=== PATIENT | male | born 1975 | race Caucasian/White ===

== ENCOUNTER 2018-06-27 12:13 | Emergency (ER) | payer OTHER, MEDICAID, SELFPAY ==
[2018-06-27 12:25] VITALS: BP 185/98; PULSE 92; RESP 15; TEMP 36.8; O2SAT 95; BMI 51.7
--- NOTE | 2018-06-27 12:36 | ED.GENADULT ---
HPI - General Adult <CRYSTAL Manriquez - Last Filed: 06/27/18 18:14> General Chief complaint: Diabetic Problem Stated complaint: ran out of insulin,groin pain,elevated blood sugar Time Seen by Provider: 06/27/18 12:36 Source: patient Mode of arrival: ambulatory Limitations: no limitations History of Present Illness HPI narrative: The patient is a 42-year-old male with history of diabetes and hypertension who presents with a chief complaint of various medical issues including running out of his Lantus for 2 days, elevated blood sugars, substernal chest pain, and left groin pain. he states that his groin pain has come and gone several times over the past 6 months. He has taken 1 aspirin today for his groin pain. He states it radiates down his leg. He feels as though it is muscular. He states he had substernal chest pain 2 days ago which is concerning him as he has elevated blood sugars as well as elevated blood pressure. He has a primary care provider in [place], and called the their office today to get a refill of his Lantus. He states they have not filled it yet. He feels woozy given his high blood sugars and states he has some blurry vision with his high blood sugars. He openly admits that he does not follow up his primary care provider as much as he should, does not take his Humalog insulin as he is unsure how to take it. Related Data Home Medications Medication Instructions Recorded Confirmed clindamycin HCl 300 mg PO TID 06/27/18 06/27/18 fluticasone propionate [Flovent 1 puff INHALATION PRN PRN 06/27/18 06/27/18 HFA] insulin glargine [Lantus Solostar 35 units SUBCUT QPM 06/27/18 06/27/18 U-100 Insulin] insulin lispro [Humalog U-100 5 units SUBCUT PRN PRN 06/27/18 06/27/18 Insulin] losartan 100 mg PO DAILY 06/27/18 06/27/18 Allergies Allergy/AdvReac Type Severity Reaction Status Date / Time lisinopril Allergy Verified 06/27/18 13:15 Review of Systems <CRYSTAL Manriquez - Last Filed: 06/27/18 18:14> Review of Systems GENERAL: Denies chills, fatigue, malaise, fever, sweats. HEENT: Denies sinus pain, ear pain, sore throat, difficulty swallowing, dizziness. RESPIRATORY: Denies dyspnea, cough, wheezing, hemoptysis, sputum. CARDIOVASCULAR: See HPI GASTROINTESTINAL: Denies nausea, vomiting, abdominal pain, diarrhea, constipation, melena. : Denies dysuria, frequency, incontinence, hematuria, urinary retention. MUSCULOSKELETAL: See HPI SKIN: Denies rash, skin lesions, or other NEUROLOGIC: Denies weakness, headache, numbness, change in speech, confusion, seizures, incoordination. PSYCHIATRIC: No concerning psychosocial issues. 12 point review of systems is negative except for those stated above PFSH <CRYSTAL Manriquez - Last Filed: 06/27/18 18:14> Medical History Diabetes (Acute) Hypertension (Acute) Obesity (Acute) Social History (Updated 06/27/18 @ 12:57 by CRYSTAL Manriquez) marital status: unmarried,single details: Has girlfriend Social History (Updated 06/27/18 @ 12:57 by CRYSTAL Manriquez) marital status: unmarried,single details: Has girlfriend Exam <CRYSTAL Manriquez - Last Filed: 06/27/18 18:14> Narrative Exam Narrative: GENERAL: Obese patient sitting on stretcher HEAD: Atraumatic. Normocephalic. No temporal or scalp tenderness. EYES: Pupils equal round and reactive. Extraocular motions intact. No scleral icterus. No injection or drainage. ENT: Nose without bleeding, purulent drainage or septal hematoma. Throat without erythema, tonsillar hypertrophy or exudate. Uvula midline. Airway patent. NECK: Trachea midline. No JVD or lymphadenopathy. Supple, nontender, no meningeal signs. CARDIOVASCULAR: Regular rate and rhythm without murmurs, gallops, or rubs. RESPIRATORY: Clear to auscultation. Breath sounds equal bilaterally. No wheezes, rales, or rhonchi. No cough. No increased respiratory effort. GASTROINTESTINAL: Abdomen soft, non-tender, nondistended. No hepato-splenomegaly, or palpable masses. No guarding. active bowel sounds. No palpable pulsatile mass. EXTREMITIES: No clubbing, cyanosis, or edema. No joint tenderness, effusion, or edema noted. positive pedal pulses. no palpable regularity left inguinal area. Kaylee MOTHERCRAFT NURSE present during exam. BACK: Nontender without deformity or crepitance. No flank tenderness. NEURO: AOx3. SKIN: No rash or erythema. Initial Vital Signs Initial Vital Signs: Vital Signs Temperature 98.3 F 06/27/18 12:25 Pulse Rate 92 H 06/27/18 12:25 Respiratory Rate 15 06/27/18 12:25 Blood Pressure 185/98 H 06/27/18 12:25 Pulse Oximetry 95 06/27/18 12:25 <Syed Tinsley DO - Last Filed: 06/27/18 18:42> Initial Vital Signs Initial Vital Signs: Vital Signs Temperature 98.3 F 06/27/18 12:25 Pulse Rate 92 H 06/27/18 12:25 Respiratory Rate 15 06/27/18 12:25 Blood Pressure 185/98 H 06/27/18 12:25 Pulse Oximetry 95 06/27/18 12:25 Course <CRYSTAL Manriquez - Last Filed: 06/27/18 18:14> Orders Ordered: ED Orders 06/27/18 12:53 XR chest 1V Stat 06/27/18 13:10 Amylase Stat B Type Natriuretic Peptide Stat Complete Blood Count AUTO DIFF Stat Comprehensive Metabolic Panel Stat Lipase Stat Troponin & CK Cardiac Panel Stat 06/27/18 13:16 EKG-12 Lead Stat 06/27/18 14:25 Urine Culture Stat Urine Microscopic Stat 06/27/18 16:35 Troponin & CK Cardiac Panel Stat Discontinued Medications Sodium Chloride (Normal Saline 0.9%) 1,000 mls @ 1,000 mls/hr IV BOLUS ONE Stop: 06/27/18 13:52 Last Infusion: 06/27/18 14:08 Dose: 0 mls/hr Admin: 06/27/18 13:14 Dose: 1,000 mls/hr Sodium Chloride (Normal Saline 0.9%) 1,000 mls @ 1,000 mls/hr IV BOLUS ONE Stop: 06/27/18 16:01 Last Infusion: 06/27/18 17:52 Dose: 0 mls/hr Admin: 06/27/18 15:53 Dose: 1,000 mls/hr Insulin Glargine (Lantus Solostar (Pen)) 35 unit SUBCUT BEDTIME ETHAN Last Admin: 06/27/18 18:00 Dose: 35 unit Insulin Human Regular (Humulin R) 3 unit SUBCUT NOW ONE Stop: 06/27/18 14:53 Last Admin: 06/27/18 15:54 Dose: 3 unit Ketorolac Tromethamine (Toradol) 30 mg IV NOW ONE Stop: 06/27/18 14:44 Last Admin: 06/27/18 15:53 Dose: 30 mg Vital Signs - 8 hr 06/27/18 12:25 06/27/18 13:32 06/27/18 14:08 Temperature 98.3 F Pulse Rate 92 H 82 70 Respiratory Rate 15 16 16 Blood Pressure 185/98 H Blood Pressure [Right Arm] 169/89 H 124/50 L Pulse Oximetry 95 96 95 06/27/18 16:01 06/27/18 17:12 Temperature Pulse Rate 80 81 Respiratory Rate 18 16 Blood Pressure Blood Pressure [Right Arm] 164/99 H 170/94 H Pulse Oximetry 96 95 <Syed Tinsley, DO - Last Filed: 06/27/18 18:42> Orders Ordered: ED Orders 06/27/18 12:53 XR chest 1V Stat 06/27/18 13:10 Amylase Stat B Type Natriuretic Peptide Stat Complete Blood Count AUTO DIFF Stat Comprehensive Metabolic Panel Stat Lipase Stat Troponin & CK Cardiac Panel Stat 06/27/18 13:16 EKG-12 Lead Stat 06/27/18 14:25 Urine Culture Stat Urine Microscopic Stat 06/27/18 16:35 Troponin & CK Cardiac Panel Stat Discontinued Medications Sodium Chloride (Normal Saline 0.9%) 1,000 mls @ 1,000 mls/hr IV BOLUS ONE Stop: 06/27/18 13:52 Last Infusion: 06/27/18 14:08 Dose: 0 mls/hr Admin: 06/27/18 13:14 Dose: 1,000 mls/hr Sodium Chloride (Normal Saline 0.9%) 1,000 mls @ 1,000 mls/hr IV BOLUS ONE Stop: 06/27/18 16:01 Last Infusion: 06/27/18 17:52 Dose: 0 mls/hr Admin: 06/27/18 15:53 Dose: 1,000 mls/hr Insulin Glargine (Lantus Solostar (Pen)) 35 unit SUBCUT BEDTIME ETHAN Last Admin: 06/27/18 18:00 Dose: 35 unit Insulin Human Regular (Humulin R) 3 unit SUBCUT NOW ONE Stop: 06/27/18 14:53 Last Admin: 06/27/18 15:54 Dose: 3 unit Ketorolac Tromethamine (Toradol) 30 mg IV NOW ONE Stop: 06/27/18 14:44 Last Admin: 06/27/18 15:53 Dose: 30 mg Vital Signs - 8 hr 06/27/18 12:25 06/27/18 13:32 06/27/18 14:08 Temperature 98.3 F Pulse Rate 92 H 82 70 Respiratory Rate 15 16 16 Blood Pressure 185/98 H Blood Pressure [Right Arm] 169/89 H 124/50 L Pulse Oximetry 95 96 95 06/27/18 16:01 06/27/18 17:12 Temperature Pulse Rate 80 81 Respiratory Rate 18 16 Blood Pressure Blood Pressure [Right Arm] 164/99 H 170/94 H Pulse Oximetry 96 95 Medical Decision Making <Suzi Farooq, SENIOR DATABASE ADMINISTRATOR-BC - Last Filed: 06/27/18 18:14> Lab Data Result diagrams: 06/27/18 13:10 06/27/18 13:10 Lab Results 06/27/18 06/27/18 06/27/18 Range/Units 13:10 13:10 14:25 WBC 10.5 (4.5-11.0) X10^3/uL RBC 4.57 (4.5-5.9) X10^6/uL Hgb 13.1 L (13.5-17.5) g/dL Hct 39.9 L (41-53) % MCV 87.3 (80-100) fL MCH 28.7 (26-34) PG MCHC 32.9 (30-36) % RDW 13.4 (11.6-14.8) % Plt Count 303 (150-400) X10^3/uL Neut % (Auto) 69.1 (50-75) % Lymph % (Auto) 21.4 L (25-40) % Gibson % (Auto) 5.8 (3-14) % Eos % (Auto) 3.0 (2-4) % Baso % (Auto) 0.7 (0-2) % Neut # (Auto) 7300 H (0623-1971) /uL Lymph # (Auto) 2200 (4124-6142) /uL Gibson # (Auto) 600 (0-900) /uL Eos # (Auto) 300 (0-450) /uL Baso # (Auto) 100 (0-100) /uL Sodium 134 L (137-145) mmol/L Potassium 4.2 (3.4-5.1) mmol/L Chloride 101 (98-107) mmol/L Carbon Dioxide 24 (22-32) mmol/L BUN 21 H (9-20) mg/dL Creatinine 0.60 L (0.66-1.25) mg/dL Estimated GFR > 60.0 (>60) mL/min BUN/Creatinine Ratio 35.0 H (6-22) Glucose 310 H (70-100) mg/dL Calcium 8.7 (8.4-10.2) mg/dL Total Bilirubin 0.3 (0.2-1.3) mg/dL AST 22 (17-59) IU/L ALT 29 (21-72) IU/L Alkaline Phosphatase 121 (38-126) U/L Total Creatine Kinase 62 (55-170) U/L CK-MB (CK-2) TNP CK-MB (CK-2) Rel Index TNP Troponin I < 0.012 (0.01-0.034) ng/mL B-Natriuretic Peptide < 100 (<100) Total Protein 7.4 (6.3-8.2) g/dL Albumin 3.9 (3.5-5.0) g/dL Globulin 3.5 (1.7-4.1) g/dL Albumin/Globulin Ratio 1.1 (1.0-2.8) Amylase 36 (30-110) U/L Lipase 42 (23-300) U/L Urine RBC 0-1/hpf (0-5/HPF) Urine WBC 30-100/hpf H (0-5/HPF) Ur Squamous Epith Cells 1-5 /hpf (0-5/HPF) Ur Transition Epith Cell 0-1/hpf (0-5/HPF) Amorphous Sediment 1+ Urine Bacteria None seen (None) Urine Mucus 1+ H (Negative) Ur Culture Indicated? Specimen cultured 06/27/18 Range/Units 16:35 WBC (4.5-11.0) X10^3/uL RBC (4.5-5.9) X10^6/uL Hgb (13.5-17.5) g/dL Hct (41-53) % MCV (80-100) fL MCH (26-34) PG MCHC (30-36) % RDW (11.6-14.8) % Plt Count (150-400) X10^3/uL Neut % (Auto) (50-75) % Lymph % (Auto) (25-40) % Gibson % (Auto) (3-14) % Eos % (Auto) (2-4) % Baso % (Auto) (0-2) % Neut # (Auto) (2312-3304) /uL Lymph # (Auto) (7685-6238) /uL Gibson # (Auto) (0-900) /uL Eos # (Auto) (0-450) /uL Baso # (Auto) (0-100) /uL Sodium (137-145) mmol/L Potassium (3.4-5.1) mmol/L Chloride (98-107) mmol/L Carbon Dioxide (22-32) mmol/L BUN (9-20) mg/dL Creatinine (0.66-1.25) mg/dL Estimated GFR (>60) mL/min BUN/Creatinine Ratio (6-22) Glucose (70-100) mg/dL Calcium (8.4-10.2) mg/dL Total Bilirubin (0.2-1.3) mg/dL AST (17-59) IU/L ALT (21-72) IU/L Alkaline Phosphatase (38-126) U/L Total Creatine Kinase 53 L (55-170) U/L CK-MB (CK-2) TNP CK-MB (CK-2) Rel Index TNP Troponin I < 0.012 (0.01-0.034) ng/mL B-Natriuretic Peptide (<100) Total Protein (6.3-8.2) g/dL Albumin (3.5-5.0) g/dL Globulin (1.7-4.1) g/dL Albumin/Globulin Ratio (1.0-2.8) Amylase (30-110) U/L Lipase (23-300) U/L Urine RBC (0-5/HPF) Urine WBC (0-5/HPF) Ur Squamous Epith Cells (0-5/HPF) Ur Transition Epith Cell (0-5/HPF) Amorphous Sediment Urine Bacteria (None) Urine Mucus (Negative) Ur Culture Indicated? Point of Care Testing Glucose POC 294 Urine Dip Bedside Urine Glucose 1000 mg/dl Bedside Urine Bilirubin - Negative Bedside Urine Ketone - Negative Urine Specific [place] 1.030 Bedside Urine Occult Blood - Negative Bedside Urine pH 5.5 Bedside Urine Protein +/- 15 Bedside Urine Urobilinogen - Negative Bedside Urine Nitrite - Negative Bedside Urine Leukocytes +/- 15 Esterase Point of care testing: Point of Care Testing Glucose POC 294 Urine Dip Bedside Urine Glucose 1000 mg/dl Bedside Urine Bilirubin - Negative Bedside Urine Ketone - Negative Urine Specific [place] 1.030 Bedside Urine Occult Blood - Negative Bedside Urine pH 5.5 Bedside Urine Protein +/- 15 Bedside Urine Urobilinogen - Negative Bedside Urine Nitrite - Negative Bedside Urine Leukocytes +/- 15 Esterase Imaging Data Chest x-ray: Radiologist's impression: Thanh Wagner 42 M 1975 [place] [address] XRay Report Signed Patient: Shae Wagnery DMR#: [id number] : 1975Acct:[id number] Age/Sex: 42 / MDate of Service: 06/27/18 Loc: ED Accession Number: [id number] Procedure: XR chest 1V Ordering Provider: Suzi Farooq-GARCÍA PROCEDURE: XR CHEST 1V INDICATIONS: chest pain TECHNIQUE: One view of the chest was acquired. COMPARISON: [facility], , XR CHEST 2 VIEWS, 05/05/2017, 10:44. FINDINGS: Surgical changes and devices: Shrapnel projects over the right chest wall. Lungs and pleura: Lungs are clear. No pleural effusions or pneumothorax. Mediastinum: Mediastinal contours appear normal. Heart size is enlarged. Bones and chest wall: No suspicious bony lesions. Overlying soft tissues appear unremarkable. IMPRESSION: No acute process. Dictated by: aZk Strickland M.D. on 06/27/2018 at 13:27 Approved by: Zak Strickland M.D. on 06/27/2018 at 13:28 MDM Narrative Medical decision making narrative: The patient is a 42-year-old male with history of diabetes who presents with a chief complaint of high blood sugar off of his insulin, but also complains of chest pain several days ago. He had 2-troponins, normal EKG, normal chest x-ray. He does not have a gap and thus is not in DKA. I did call [facility] in [place], who state they have his prescription but they will not have Lantus and stock until tomorrow. The patient received some insulin as well as 2 L IV fluids throughout his stay in the emergency department. His blood sugar decreased from 400s upon waking to 200s in the ER. He stated he was ready to go and wanted to leave. Given that he does not have any Lantus at home, I gave him a single dose of Lantus in the emergency department with strict instructions to keep an eye on his blood sugar. Discussed the importance of coming back to the emergency department for any acute concerns such as chest pain shortness of breath, concern of heart attack or stroke. I encouraged him to follow up with his primary care provider as soon as possible. Patient states understanding and has no questions upon discharge. <Syed Tinsley DO - Last Filed: 06/27/18 18:42> Lab Data Lab Results 06/27/18 06/27/18 06/27/18 Range/Units 13:10 13:10 14:25 WBC 10.5 (4.5-11.0) X10^3/uL RBC 4.57 (4.5-5.9) X10^6/uL Hgb 13.1 L (13.5-17.5) g/dL Hct 39.9 L (41-53) % MCV 87.3 (80-100) fL MCH 28.7 (26-34) PG MCHC 32.9 (30-36) % RDW 13.4 (11.6-14.8) % Plt Count 303 (150-400) X10^3/uL Neut % (Auto) 69.1 (50-75) % Lymph % (Auto) 21.4 L (25-40) % Gibson % (Auto) 5.8 (3-14) % Eos % (Auto) 3.0 (2-4) % Baso % (Auto) 0.7 (0-2) % Neut # (Auto) 7300 H (3134-7991) /uL Lymph # (Auto) 2200 (8820-8071) /uL Gibson # (Auto) 600 (0-900) /uL Eos # (Auto) 300 (0-450) /uL Baso # (Auto) 100 (0-100) /uL Sodium 134 L (137-145) mmol/L Potassium 4.2 (3.4-5.1) mmol/L Chloride 101 (98-107) mmol/L Carbon Dioxide 24 (22-32) mmol/L BUN 21 H (9-20) mg/dL Creatinine 0.60 L (0.66-1.25) mg/dL Estimated GFR > 60.0 (>60) mL/min BUN/Creatinine Ratio 35.0 H (6-22) Glucose 310 H (70-100) mg/dL Calcium 8.7 (8.4-10.2) mg/dL Total Bilirubin 0.3 (0.2-1.3) mg/dL AST 22 (17-59) IU/L ALT 29 (21-72) IU/L Alkaline Phosphatase 121 (38-126) U/L Total Creatine Kinase 62 (55-170) U/L CK-MB (CK-2) TNP CK-MB (CK-2) Rel Index TNP Troponin I < 0.012 (0.01-0.034) ng/mL B-Natriuretic Peptide < 100 (<100) Total Protein 7.4 (6.3-8.2) g/dL Albumin 3.9 (3.5-5.0) g/dL Globulin 3.5 (1.7-4.1) g/dL Albumin/Globulin Ratio 1.1 (1.0-2.8) Amylase 36 (30-110) U/L Lipase 42 (23-300) U/L Urine RBC 0-1/hpf (0-5/HPF) Urine WBC 30-100/hpf H (0-5/HPF) Ur Squamous Epith Cells 1-5 /hpf (0-5/HPF) Ur Transition Epith Cell 0-1/hpf (0-5/HPF) Amorphous Sediment 1+ Urine Bacteria None seen (None) Urine Mucus 1+ H (Negative) Ur Culture Indicated? Specimen cultured 06/27/18 Range/Units 16:35 WBC (4.5-11.0) X10^3/uL RBC (4.5-5.9) X10^6/uL Hgb (13.5-17.5) g/dL Hct (41-53) % MCV (80-100) fL MCH (26-34) PG MCHC (30-36) % RDW (11.6-14.8) % Plt Count (150-400) X10^3/uL Neut % (Auto) (50-75) % Lymph % (Auto) (25-40) % Gibson % (Auto) (3-14) % Eos % (Auto) (2-4) % Baso % (Auto) (0-2) % Neut # (Auto) (8258-4494) /uL Lymph # (Auto) (8811-9247) /uL Gibson # (Auto) (0-900) /uL Eos # (Auto) (0-450) /uL Baso # (Auto) (0-100) /uL Sodium (137-145) mmol/L Potassium (3.4-5.1) mmol/L Chloride (98-107) mmol/L Carbon Dioxide (22-32) mmol/L BUN (9-20) mg/dL Creatinine (0.66-1.25) mg/dL Estimated GFR (>60) mL/min BUN/Creatinine Ratio (6-22) Glucose (70-100) mg/dL Calcium (8.4-10.2) mg/dL Total Bilirubin (0.2-1.3) mg/dL AST (17-59) IU/L ALT (21-72) IU/L Alkaline Phosphatase (38-126) U/L Total Creatine Kinase 53 L (55-170) U/L CK-MB (CK-2) TNP CK-MB (CK-2) Rel Index TNP Troponin I < 0.012 (0.01-0.034) ng/mL B-Natriuretic Peptide (<100) Total Protein (6.3-8.2) g/dL Albumin (3.5-5.0) g/dL Globulin (1.7-4.1) g/dL Albumin/Globulin Ratio (1.0-2.8) Amylase (30-110) U/L Lipase (23-300) U/L Urine RBC (0-5/HPF) Urine WBC (0-5/HPF) Ur Squamous Epith Cells (0-5/HPF) Ur Transition Epith Cell (0-5/HPF) Amorphous Sediment Urine Bacteria (None) Urine Mucus (Negative) Ur Culture Indicated? Point of Care Testing Glucose POC 294 Urine Dip Bedside Urine Glucose 1000 mg/dl Bedside Urine Bilirubin - Negative Bedside Urine Ketone - Negative Urine Specific [place] 1.030 Bedside Urine Occult Blood - Negative Bedside Urine pH 5.5 Bedside Urine Protein +/- 15 Bedside Urine Urobilinogen - Negative Bedside Urine Nitrite - Negative Bedside Urine Leukocytes +/- 15 Esterase Point of care testing: Point of Care Testing Glucose POC 294 Urine Dip Bedside Urine Glucose 1000 mg/dl Bedside Urine Bilirubin - Negative Bedside Urine Ketone - Negative Urine Specific [place] 1.030 Bedside Urine Occult Blood - Negative Bedside Urine pH 5.5 Bedside Urine Protein +/- 15 Bedside Urine Urobilinogen - Negative Bedside Urine Nitrite - Negative Bedside Urine Leukocytes +/- 15 Esterase Discharge Plan Departure Patient Disposition: Home Clinical Impression: Elevated blood sugar Inguinal pain Qualifiers: Laterality: left Qualified Code(s): R10.32 - Left lower quadrant pain Chest pain Qualifiers: Chest pain type: unspecified Qualified Code(s): R07.9 - Chest pain, unspecified Discharge Date/Time: 06/27/18 18:10 Interventions: ED Discharge Assessment Last Done: 06/27/18 18:09 Instructions: DI for Diabetes Type 2, DI for Muscle Strain, DI for Chest Pain Activity Restrictions/Additional Instructions: Please follow up with her primary care provider as soon as possible. I spoke with rosie Romero. They have her Lantus prescription, but do not have any in stock. They will have Lantus in stock tomorrow. We have given you your dose for tonight. Otherwise your cardiac labs and kidney function are normal. however I am concerned about the fact that you had chest pain several days ago. You need to follow up with your primary care provider for further investigation. Please take your insulin as directed and be sure to see your primary care provider. Come back to the emergency department for any acute concerns such as chest pain, shortness of breath concern of heart attack or stroke. Prescriptions: No Action clindamycin HCl 300 mg capsule 300 mg PO TID RF: 0 Flovent HFA 220 mcg/actuation HFA aerosol inhaler 1 puff Inhalation PRN PRN (Reason: Shortness Of Breath) RF: 0 Humalog U-100 Insulin 100 unit/mL solution 5 units subcut PRN PRN (Reason: glucose over 150) RF: 0 losartan 100 mg tablet 100 mg PO DAILY RF: 0 Lantus Solostar U-100 Insulin 100 unit/mL (3 mL) insulin pen 35 units subcut QPM RF: 0 <Syed Tinsley, DO - Last Filed: 06/27/18 18:42> Cosign ED Attending Kayodeature Attestation: I was immediately available in the department for consultation. Documentation has been reviewed. I agree with assessment and plan.
--- NOTE | 2018-06-27 12:53 | DI.RAD.S_ITS ---
PROCEDURE: XR CHEST 1V INDICATIONS: chest pain TECHNIQUE: One view of the chest was acquired. COMPARISON: [facility], CR, XR CHEST 2 VIEWS, 05/05/2017, 10:44. FINDINGS: Surgical changes and devices: Shrapnel projects over the right chest wall. Lungs and pleura: Lungs are clear. No pleural effusions or pneumothorax. Mediastinum: Mediastinal contours appear normal. Heart size is enlarged. Bones and chest wall: No suspicious bony lesions. Overlying soft tissues appear unremarkable. IMPRESSION: No acute process. Dictated by: Zak Strickland M.D. on 06/27/2018 at 13:27 Approved by: Zak Strickland M.D. on 06/27/2018 at 13:28
[2018-06-27] MEDS: SODIUM CHLORIDE 0.9% 1,000 ML 1000 ML IV ×2 (13:14→15:53)
[2018-06-27 13:26] LABS: Add Manual Diff / Slide Review NO; Basophils Absolute Auto 100 /uL (0-100); Basophils Percent Auto 0.7 % (0-2); Eosinophils Absolute Auto 300 /uL (0-450); Hematocrit 39.9 % (41-53); Hemoglobin 13.1 g/dL (13.5-17.5); Lymphocytes Absolute Auto 2200 /uL (1100-4500); Lymphocytes Percent Auto 21.4 % (25-40); Mean Corpuscular HGB Conc 32.9 % (30-36); Mean Corpuscular Hemoglobin 28.7 PG (26-34); Mean Corpuscular Volume 87.3 fL (80-100); Monocytes Absolute Auto 600 /uL (0-900); Monocytes Percent Auto 5.8 % (3-14); Neutrophils Absolute Auto 7300 /uL (1500-7000); Neutrophils Percent Auto 69.1 % (50-75); Platelet Count 303 X10^3/uL (150-400); Red Blood Cell Count 4.57 X10^6/uL (4.5-5.9); Red Cell Distribution Width 13.4 % (11.6-14.8); White Blood Cell Count 10.5 X10^3/uL (4.5-11.0)
[2018-06-27 13:32] VITALS: BP 169/89; PULSE 82; RESP 16; O2SAT 96
[2018-06-27 13:32] LABS: Alanine Aminotransferase 29 IU/L (21-72); Albumin 3.9 g/dL (3.5-5.0); Albumin Globulin Ratio 1.1 (1.0-2.8); Alkaline Phosphatase 121 U/L (38-126); Amylase 36 U/L (30-110); Aspartate Aminotransferase 22 IU/L (17-59); Bilirubin Total 0.3 mg/dL (0.2-1.3); Blood Urea Nitrogen 21 mg/dL (9-20); Calcium 8.7 mg/dL (8.4-10.2); Carbon Dioxide 24 mmol/L (22-32); Chloride 101 mmol/L (98-107); Creatine Kinase 62 U/L (55-170); Estimated Glomerular Filt Rate > 60.0 mL/min (>60); Globulin 3.5 g/dL (1.7-4.1); Glucose 310 mg/dL (70-100); HEMOLYSIS < 15 (0-50); Lipase 42 U/L (23-300); Potassium 4.2 mmol/L (3.4-5.1); Sodium 134 mmol/L (137-145); Total Protein 7.4 g/dL (6.3-8.2)
--- NOTE | 2018-06-27 13:33 | PC.NURSE ---
here today, ran out of lantus 2 days ago, waiting for refill, drives a forklift, feeling unsafe and with blurry vision today. denies injuries. denies fever,vomiting. also has left groin pain with movement. dx with dm 4 years ago. lantus on for 2 years, humalog last couple of months. presently denies visual blurriness. denies headache, +photosensitive.
[2018-06-27 13:42] LABS: B Type Natriuretic Peptide < 100 (<100)
[2018-06-27 13:44] LABS: Troponin I < 0.012 ng/mL (0.01-0.034)
[2018-06-27 14:08] VITALS: BP 124/50; PULSE 70; RESP 16; O2SAT 95
[2018-06-27 14:56] LABS: Bacteria Urine None Seen
[2018-06-27 15:05] LABS: RBC Urine 0-1/HPF (0-5/HPF); Squamous Epithelial Cell Urine 1-5 /HPF (0-5/HPF); WBC Urine 30-100/HPF (0-5/HPF)
[2018-06-27 15:06] LABS: Amorphous Sediment Urine 1+; Culture Indicated Urine Specimen Cultured; Mucus Urine 1+ (Negative); Transitional Epi Cells Urine 0-1/HPF (0-5/HPF)
[2018-06-27] MEDS: KETOROLAC 60 MG/2 ML VIAL 30 MG IV (15:53)
[2018-06-27] MEDS: INSULIN REGULAR 100 UNIT/ML 3 ML VIAL SUBCUT (15:54)
[2018-06-27 16:01] VITALS: BP 164/99; PULSE 80; RESP 18; O2SAT 96
[2018-06-27 16:57] LABS: Creatine Kinase 53 U/L (55-170)
[2018-06-27 17:10] LABS: Troponin I < 0.012 ng/mL (0.01-0.034)
[2018-06-27 17:12] VITALS: BP 170/94; PULSE 81; RESP 16; O2SAT 95
[2018-06-27] MEDS: INSULIN GLARGINE 100 UNIT/ML 3ML PEN 35 UNIT SUBCUT (18:00)
== END 2018-06-27 18:10 | disposition home or self-care (01) ==
PROVIDERS: Emergency Provider Nurse Practitioner Family
DX: R73.9 Hyperglycemia, unspecified (principal); R10.32 Left lower quadrant pain; R07.9 Chest pain, unspecified; R03.0 Elevated blood-pressure reading, without diagnosis of hypertension
CPT/HCPCS: 36591; 71045; 80053; 81003; 81015; 82150; 82550; 82962; 83690; 83880; 84484; 85025; 87086; 93005; 96361; 96372; 96374; 99283; 99285; J1885